=== PATIENT | male | born 1975 | race Caucasian/White ===

== ENCOUNTER 2017-03-26 21:33 | Emergency (ER) ==
[2017-03-26 21:42] VITALS: BP 157/93; TEMP 98; BMI 28.2
[2017-03-26] MEDS ORDERED: DOXYCYCLINE HYCLATE PO STA (22:03)
[2017-03-26] MEDS ORDERED: ULTRAM PO STA (22:04)
--- NOTE | 2017-03-26 22:09 | ED.PDOC ---
General ED Provider: Dr. FOREIGN MCCLELLAND-ER Chief Complaint: Abscess Stated Complaint: sari got this thing in my thigh Time Seen by Physician: 22:04 Mode of Arrival: Walk-In Information Source: Patient Exam Limitations: No limitations Primary Care Provider: FOREIGN MCCLELLAND Nursing and Triage Documentation Reviewed and Agree: Yes Reviewed sepsis parameters & appropriate labs ordered?: Yes System Inflammatory Response Syndrome: Not Applicable Sepsis Protocol: For patient's 13 years and over: Temp is 96.8 and below OR 101 and greater Pulse >90 BPM Resp >20/minute Acutely Altered Mental Status Are patient's symptoms suggestive of a new infection, such as: -Pneumonia -Skin, Soft Tissue -Endocarditis -UTI -Bone, Joint Infection -Implantable Device -Acute Abdominal Infection -Wound Infection -Meningitis -Blood Stream Catheter Infection -Unknown Skin Complaint Exam - Skin/Soft Tissue Complaint/Exam Onset/Duration: several days Symptoms Are: Still present Timing: Constant Initial Severity: Mild Current Severity: Mild Location: left thigh Character: Reports: Redness, Swelling, Raised, Painful Aggravating: Reports: None Alleviating: Reports: None Associated Signs and Symptoms: Reports: Tenderness. Denies: Fever, Chills, Itching, Drainage, Red streaks, Joint swelling Related Surgical History: Reports: None Recent Exposure to Others w/Similar Symptoms: No Skin Findings: Present: Fluctuant mass Joint Tenderness Present: No Differential Diagnoses: Abscess, Cellulitis Review of Systems - Review Of Systems Constitutional: Reports: No symptoms Eyes: Reports: No symptoms Ears, Nose, Mouth, Throat: Reports: No symptoms Respiratory: Reports: No symptoms Cardiac: Reports: No symptoms GI: Reports: No symptoms : Reports: No symptoms Musculoskeletal: Reports: No symptoms Skin: Reports: Lumps, Rash Neurological: Reports: No symptoms Endocrine: Reports: No symptoms Hematologic/Lymphatic: Reports: No symptoms All Other Systems: Reviewed and Negative Past Medical History - Past Medical History Previously Healthy: Yes Endocrine: Reports: Unknown Cardiovascular: Reports: Unknown Respiratory: Reports: Unknown Hematological: Reports: Unknown Gastrointestinal: Reports: Unknown Genitourinary: Reports: Unknown Neuro/Psych: Reports: Unknown Musculoskeletal: Reports: Unknown Cancer: Reports: Unknown - Surgical History General Surgical History: Denies: Unknown - Family History Family History: Reports: Unknown - Social History Smoking Status: Current some day smoker Hx Substance Use: No Alcohol Screening: None - Immunizations Tetanus Shot up to Date: Yes Physical Exam - Physical Exam Appearance: Well-appearing, No pain distress, Well-nourished Pain Distress: Mild Eyes: JAZMINE, EOMI, Conjunctiva clear ENT: Ears normal, Nose normal, Oropharynx normal Neck: Supple Respiratory: Airway patent Cardiovascular: RRR, Pulses normal, No rub, No murmur GI/: Soft, Nontender, No masses, Bowel sounds normal, No Organomegaly Musculoskeletal: Normal strength, ROM intact, No edema, No calf tenderness Skin: Warm Neurological: Sensation intact, Motor intact, Reflexes intact, Cranial nerves intact, Alert, Oriented Psychiatric: Affect appropriate, Mood appropriate Critical Care Note - Critical Care Note Total Time (mins): 0 Course - Course Orders, Labs, Meds: Orders Category Date Time Status Doxycycline Hyclate MEDS 03/26/17 22:03 Stat 100 mg PO NOW STA Tramadol HCl [Ultram] MEDS 03/26/17 22:04 Stat 100 mg PO ONCE STA Medications Discontinued Medications Generic Name Dose Route Start Last Admin Trade Name Freq PRN Reason Stop Dose Admin Doxycycline Hyclate 100 mg 03/26/17 22:03 Doxycycline Hyclate PO 03/26/17 22:04 NOW STA Tramadol HCl 100 mg 03/26/17 22:04 Ultram PO 03/26/17 22:05 ONCE STA i feel Zane needs to be in the hospital with iv antbx and surgical consult but because of his work policy he says he absolutely cannot go into the hospital at this time--he is warned this could get worse and result in injury and even from sepsis but doesnt want to go into the hospital now Vital Signs: Temp Pulse Resp BP Pulse Ox 03/26/17 21:36 98 F 77 16 157/93 H 98 Departure - Departure Time of Disposition: 22:09 Disposition: HOME SELF-CARE Discharge Problem: Abscess Instructions: Abscess (ED) Condition: Good Pt referred to PMD for follow-up: Yes Additional Instructions: doxycycline 100mg bid x 7 days--ultram 50mg 1-2 tabs q 6hrs #20--warm compresses --see me monday 8:15 am for admission--sooner if you change your mind Allergies/Adverse Reactions: Allergies No Known Allergies Allergy (Unverified 03/26/17 21:45) Home Medications: Ambulatory Orders 1 [No Reported Medications] 03/26/17 Disposition Discussed With: Patient
== END 2017-03-26 22:19 | disposition home or self-care (01) ==
LOC: ED 21:33
DX: L02.416 Cutaneous abscess of left lower limb (principal); F17.210 Nicotine dependence, cigarettes, uncomplicated
CPT/HCPCS: 99282

== ENCOUNTER 2018-11-09 08:00 | Outpatient (RCR) ==
--- NOTE | 2018-10-26 09:53 | RS.OTDNOTE ---
Subjective Date of Note: 10/26/18 Visit #: 6 Number of visits approved by Insurance: 8 Date of Evaluation: 10/10/18 Payer Source: Insurance Treatment Diagnosis: Right elbow pain M25.521 *Precautions: At risk for further injury Current Complaints/Gains: Pain continues with certain movements. 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 States he relies more on his (L) UE/hand 2* pain in his dom (R)UE. Pain Assessment - Pain Description Pain Description: Tightness, Radiating, Sharp, Dull, Throbbing, Aching, Acute Pain Location: Right elbow some laterally of the olecranon process. Pt reports pain on the lateral epicondyle area. Pain Description: Aches, sharp, tenderness to touch (R) elbow and anterior shoulder Current Pain Intensity: 4 Worst Pain Intensity: 10 Modalities - Treatment Modality: Ultrasound Parameters/Method Applied: 1.5w/cm2 x 10 mins Treatment Area: elbow Patient Position: Sitting - Hot Pack/Cryotherapy Treatment: Hot Pack, Cryotherapy Comments:: Pt ed to continue with stretching program and applying CP Interventions - Exercise/Activities Exercise/Activities/Manual Therapy: Ultrasound to the right lateral elbow to decrease pain, edema and scar tissue. PROM/scar massage and gentle stretching perfomed of elbow flexion/extension, wrist flexion/extension, and pronation/ supination. Pt ed continued on HEP/stretching, ice pack application, and use of tennis elbow strap for compression therapy. Medium strength hand gripper and 7#/9# digi-flex utilized for hand gripping ex along with HEP/PRE's stretching program. HOME EXERCISE PROGRAM: Pt is doing pain management tasks and edema management at this time. Pt states he has been applying CP x1 daily at night. pt issued an elbow compression strap for wknd use. - Other Treatment/Services Treatment Details: Pain continues and increases with PROM along with tenderness to touch. Pt does not like compression strap and believes it increased c/o pain. Pt encourged to speak with billing dept for MD office to obtain CT scan. - Objective Findings Objective Findings:: elbow flexion/extension increasing each session. - Charges Timed Code Treatment Minutes: 46 Total Treatment Time: 61 Procedures billed for this date of service:: CP US MT EX Assessment Patient Education: Education of diagnosis, Body/Joint mechanics, Home Exercise Program, Home Safety, Activity Modification, Education of Plan of Care Patient demonstrates compliance with HEP?: Yes Short Term Goals Goal #1: Pt to increase extension of RUE elbow to 0-10 deg. Goal to be met by: 10/24/18 Progress towards goal: Met Goal #2: Pt to increase flexion of RUE elbow 0-115 deg. Goal to be met by: 10/24/18 (PROM) Progress towards goal: Met Goal #3: Pt's pain decreased to 2-4/10. Goal to be met by: 10/24/18 Progress towards goal: Regressing Goal #4: Pt to increase his mass translator/interpreter to 103#. Goal to be met by: 10/24/18 (80# 64# 86#) Progress towards goal: Not Met Inseminator Goals Goal #1: Pt to increase extension of RUE elbow to 0-5 deg. Goal to be met by: 11/09/18 Progress towards goal: Progressing Goal #2: Pt to increase flexion of RUE elbow 0-130 deg. Goal to be met by: 11/09/18 Progress towards goal: Progressing Goal #3: Pt's pain decreased to 0-2/10. Goal to be met by: 11/09/18 Progress towards goal: Progressing Goal #4: Pt to increase his mass translator/interpreter to 109#. Goal to be met by: 11/09/18 Progress towards goal: Progressing Plan Dates of Nursing Home Goals: 11/09/18 Expiration date of current Insurance Approval:: 11/09/18 PLAN: Cont tx to max functional UE AROM/strength with decreased c/o pain
--- NOTE | 2018-10-31 09:49 | RS.OTDNOTE ---
Subjective Date of Note: 10/31/18 Visit #: 7 Number of visits approved by Insurance: 12 Date of Evaluation: 10/10/18 Payer Source: Insurance Treatment Diagnosis: Right elbow pain M25.521 *Precautions: At risk for further injury Current Complaints/Gains: Pt agrees his motion is getting better. States without activity that his pain is 0-2/10 but increases to 8-9/10 at times. States c/o a "catch or twisting". States he is still dropping things and feels weak in his (R)UE. Pain Assessment - Pain Description Pain Description: Tightness, Radiating, Sharp, Dull, Throbbing, Aching, Acute Pain Location: Right elbow some laterally of the olecranon process. Pt reports pain on the lateral epicondyle area. Pain Description: Aches, sharp, tenderness to touch (R) elbow and anterior shoulder Current Pain Intensity: 2 Worst Pain Intensity: 8-9 Modalities - Treatment Modality: Ultrasound Parameters/Method Applied: .04-1.5w/cm2 x 12+ mins Patient Position: Sitting - Hot Pack/Cryotherapy Treatment: Cryotherapy Comments:: CP X10 mins Interventions - Exercise/Activities Exercise/Activities/Manual Therapy: Ultrasound to the right lateral elbow to decrease pain, edema and scar tissue. PROM/scar massage and gentle stretching perfomed of elbow flexion/extension, wrist flexion/extension, and pronation/ supination. Pt ed continued on HEP/stretching, ice pack application, and use of tennis elbow strap for compression therapy. Medium strength hand gripper and 7#/9# digi-flex utilized for hand gripping ex along with HEP/PRE's stretching program and use of blue t-putty. HOME EXERCISE PROGRAM: Pt is doing pain management tasks and edema management at this time. Pt states he has been applying CP x1 daily at night. Pt encouraged to robbin ice pack more times during the day and ed on sleeping positions at night with (R)UE in extension. - Objective Findings Objective Findings:: elbow flexion/extension and pro/supination WFL. Pain increase with elbow flexion and supination positons. - Charges Timed Code Treatment Minutes: 48 Total Treatment Time: 59 Procedures billed for this date of service:: CP US MT EX Assessment Patient Education: Education of diagnosis, Body/Joint mechanics, Home Exercise Program, Home Safety, Activity Modification, Education of Plan of Care Patient demonstrates compliance with HEP?: Yes Short Term Goals Goal #1: Pt to increase extension of RUE elbow to 0-10 deg. Goal to be met by: 10/24/18 Progress towards goal: Met Goal #2: Pt to increase flexion of RUE elbow 0-115 deg. Goal to be met by: 10/24/18 (PROM) Progress towards goal: Met Goal #3: Pt's pain decreased to 2-4/10. Goal to be met by: 10/24/18 Progress towards goal: Progressing Comments: 2/10 without activity Goal #4: Pt to increase his mass tank driver to 103#. Goal to be met by: 10/24/18 (78# 64# 74#) Progress towards goal: Progressing Senior Living Goals Goal #1: Pt to increase extension of RUE elbow to 0-5 deg. Goal to be met by: 11/09/18 Progress towards goal: Progressing Goal #2: Pt to increase flexion of RUE elbow 0-130 deg. Goal to be met by: 11/09/18 Progress towards goal: Progressing Goal #3: Pt's pain decreased to 0-2/10. Goal to be met by: 11/09/18 Progress towards goal: Progressing Goal #4: Pt to increase his mass tank driver to 109#. Goal to be met by: 11/09/18 Progress towards goal: Progressing Plan Dates of Senior Living Goals: 11/09/18 Expiration date of current Insurance Approval:: 11/09/18 PLAN: Continue per POC to max functional UE AROM/strength with decreased c/o pain in all positions.
--- NOTE | 2018-11-02 10:22 | RS.OTDNOTE ---
Subjective Date of Note: 11/02/18 Visit #: 8 Number of visits approved by Insurance: 12 Date of Evaluation: 10/10/18 Payer Source: Insurance Treatment Diagnosis: Right elbow pain M25.521 *Precautions: At risk for further injury Current Complaints/Gains: Pt continues with c/o pain with different movements. States he has vice commercial credit lead at home and will utilize for hand strengthening ex's. States mowing and weed eating increases pain and he has trouble with starting both machines with the pull cord. Pain Assessment - Pain Description Pain Description: Tightness, Radiating, Sharp, Dull, Throbbing, Aching, Acute Pain Location: Right elbow some laterally of the olecranon process. Pt reports pain on the lateral epicondyle area. Pain Description: Aches, sharp, tenderness to touch (R) elbow and anterior shoulder Current Pain Intensity: 2-3 Worst Pain Intensity: 8 Modalities - Treatment Parameters/Method Applied: .04-1.0w/cm2 x 12 mins total Patient Position: Sitting - Hot Pack/Cryotherapy Treatment: Cryotherapy (following tx) Interventions - Exercise/Activities Exercise/Activities/Manual Therapy: Ultrasound to the right lateral elbow to decrease pain, edema and scar tissue. PROM/scar massage and gentle stretching perfomed of elbow flexion/extension, wrist flexion/extension, and pronation/ supination. Pt ed continued on HEP/stretching, ice pack application, and use of tennis elbow strap for compression therapy. Medium strength hand gripper, large vice kraft digester operator and 7#/9# digi-flex utilized for hand gripping ex along with HEP /PRE's stretching program and use of blue t-putty. Graston tool utilized for tissue mobilization tech's. HOME EXERCISE PROGRAM: Pt is doing pain management tasks and edema management at this time. Pt states he has been applying CP x1 daily at night. Pt encouraged to robbin ice pack more times during the day and ed on sleeping positions at night with (R)UE in extension. - Objective Findings Objective Findings:: elbow flexion/extension and pro/supination WFL. Pain increase with elbow flexion and supination positons. - Charges Timed Code Treatment Minutes: 51 Total Treatment Time: 60 Procedures billed for this date of service:: CP US EX MT Assessment Patient Education: Education of diagnosis, Body/Joint mechanics, Home Exercise Program, Home Safety, Activity Modification, Education of Plan of Care Patient demonstrates compliance with HEP?: Yes Short Term Goals Goal #1: Pt to increase extension of RUE elbow to 0-10 deg. Goal to be met by: 10/24/18 Progress towards goal: Met Goal #2: Pt to increase flexion of RUE elbow 0-115 deg. Goal to be met by: 10/24/18 (PROM) Progress towards goal: Met Goal #3: Pt's pain decreased to 2-4/10. Goal to be met by: 10/24/18 Progress towards goal: Progressing Goal #4: Pt to increase his mass kraft digester operator to 103#. Goal to be met by: 10/24/18 (80# 67# 72#) Progress towards goal: Progressing Comments: 80# achieved following vice kraft digester operator ex's [place] Goals Goal #1: Pt to increase extension of RUE elbow to 0-5 deg. Goal to be met by: 11/09/18 (following PROM) Progress towards goal: Partially Met Goal #2: Pt to increase flexion of RUE elbow 0-130 deg. Goal to be met by: 11/09/18 (following PROM) Progress towards goal: Partially Met Goal #3: Pt's pain decreased to 0-2/10. Goal to be met by: 11/09/18 Progress towards goal: Progressing Goal #4: Pt to increase his mass kraft digester operator to 109#. Goal to be met by: 11/09/18 Progress towards goal: Progressing Plan Dates of [place] Goals: 11/09/18 Expiration date of current Insurance Approval:: 11/09/18 PLAN: Continue tx to max UE AROM/strength with decreased c/o pain.
--- NOTE | 2018-11-05 09:30 | RS.OTDNOTE ---
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 Pt is not able to complete his job 100% at the [employer]. 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 Pain Assessment - Pain Description Pain Description: Tightness, Radiating, Sharp, Dull, Throbbing, Aching, Acute Pain Location: Right elbow some laterally of the olecranon process. Pt reports pain on the lateral epicondyle area. Pain Description: Aches, sharp, tenderness to touch (R) elbow and anterior shoulder Current Pain Intensity: 7 Worst Pain Intensity: 10 Other comments regarding pain:: Pt reports that when he completes the dealing motion his pain is higher than the 10/10. Pt reports that his elbow will lock intermittently and he has to stop and try to move his elbow in a way to get it loose. Modalities - Treatment Modality: Ultrasound Parameters/Method Applied: .4 w/cm2 to decrease pain, edema, and reallign muscle fibers for healing Treatment Area: Right elbow lateral to the olecranon process. Patient Position: Sitting - Hot Pack/Cryotherapy Treatment: Cryotherapy Interventions - Exercise/Activities Exercise/Activities/Manual Therapy: Ultrasound to the right lateral elbow to decrease pain, edema and scar tissue. PROM/scar massage and gentle stretching perfomed of elbow flexion/extension, wrist flexion/extension, and pronation/ supination. Pt ed continued on HEP/stretching, ice pack application, and use of tennis elbow strap for compression therapy intermittently. Medium strength hand gripper, large vice wet wheeler and 7#/9# digi-flex utilized for hand gripping ex along with HEP/PRE's stretching program and use of blue t-putty. Manual therapy to tender point areas to decrease pain. HOME EXERCISE PROGRAM: Pt is doing pain management tasks and edema management at this time. Pt states he has been applying CP x1 daily at night. Pt encouraged to robbin ice pack more times during the day and ed on sleeping positions at night with (R)UE in extension. - Objective Findings Objective Findings:: elbow flexion/extension and pro/supination WFL. Pain increase with elbow flexion and supination positions. - Charges Timed Code Treatment Minutes: 62 Total Treatment Time: 50 Procedures billed for this date of service:: US, MT, EX, CP Assessment Assessment: Pt has had an increase in AROM and continues to have to rotate his Right hand and elbow laterally to allow for more elbow flexion. The catch is intermittently. Pt has mass wet wheeler of avg. 71# today. Pt has pain with flexion of the small digit with 9# gripper. Patient Education: Education of diagnosis, Body/Joint mechanics, Home Exercise Program, Education of Plan of Care Problems/Comments: Pain shooting up to 01/03. Intermittent catching and locking of the elbow with AROM. Patient demonstrates compliance with HEP?: Yes Short Term Goals Goal #1: Pt to increase extension of RUE elbow to 0-10 deg. Goal to be met by: 10/24/18 Progress towards goal: Met Goal #2: Pt to increase flexion of RUE elbow 0-115 deg. Goal to be met by: 10/24/18 (PROM) Progress towards goal: Met Goal #3: Pt's pain decreased to 2-4/10. Goal to be met by: 10/24/18 Progress towards goal: Progressing Goal #4: Pt to increase his mass wet wheeler to 103#. Goal to be met by: 10/24/18 (80# 67# 72#) Progress towards goal: Progressing [place] Goals Goal #1: Pt to increase extension of RUE elbow to 0-5 deg. Goal to be met by: 11/09/18 (following PROM) Progress towards goal: Partially Met Goal #2: Pt to increase flexion of RUE elbow 0-130 deg. Goal to be met by: 11/09/18 (following PROM) Progress towards goal: Partially Met Goal #3: Pt's pain decreased to 0-2/10. Goal to be met by: 11/09/18 Progress towards goal: Progressing Goal #4: Pt to increase his mass wet wheeler to 109#. Goal to be met by: 11/09/18 Progress towards goal: Progressing Plan Dates of [facility] Goals: 11/09/18 Expiration date of current Insurance Approval:: 11/09/18 PLAN: Pt to return to physician after the to address the continued locking of the elbow with elbow AROM, and the weakness of the RUE where he cannot hang on to things without dropping them.
--- NOTE | 2018-11-09 15:04 | RS.OTDCSUM ---
Subjective Date of Discharge: 11/09/18 Date of Evaluation: 10/10/18 Number of Visits: 10 Treatment Diagnosis: M25.521 Right elbow pain Current Level of Function: Pt is having difficulty with completing his job. 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 Current Complaints/Gains: Pt has 8/10 pain in the right elbow with supination and extension. Pt has increased his AROM of elbow flexion, and patient's elbow edema has decreased. Pain Assessment - Pain Description Pain Description: Tightness, Radiating, Sharp, Throbbing, Aching, Acute Pain Location: Right elbow some laterally of the olecranon process. Pt reports pain on the lateral epicondyle area. Pain Description: Aches, sharp, tenderness to touch (R) elbow and anterior shoulder Current Pain Intensity: 0 Worst Pain Intensity: 8 Other comments regarding pain:: Pt has pain when actively using his RUE and completing pronation to supination in elbow extension. Pt is 0/10 pain at rest. When moving, patient is 8/10. Functional Outcome Measures UE Functional Index: 65 - G Codes & Severity Modifier G Codes: . Source of G Code score: . Observation - Observation Handedness: Right Shoulder ROM: Bilaterally WFL's Shoulder Muscle Strength: Left WFL's Elbow ROM: Left WFL's Elbow Muscle Strength: Left WFL's - Left Elbow Strength Left Elbow Extension: 4+ Good + Left Elbow Flexion: 4+ Good + Left Forearm Pronation: 4+ Good + Left Forearm Supination: 4+ Good + - Right Elbow Strength Right Elbow Extension: 3- Fair- Right Elbow Flexion: 3+ Fair+ Right Forearm Pronation: 3 Fair Right Forearm Supination: 2+ Poor+ Wrist ROM: Left WFL's Wrist Muscle Strength: Left WFL's - Right Wrist/Hand ROM Right Wrist Extension: 55 Right Wrist Flexion: 50 Right Wrist Radial Deviation: 20 Right Wrist Ulnar Deviation: 15 Right Forearm Pronation: 75 Right Forearm Supination: 65 Right Wrist ROM Testing Limitations: Muscle Weakness, Pain - Right Wrist Strength Right Wrist Extension: 3- Fair- Right Wrist Flexion: 3- Fair- Right Wrist Radial Deviation: 3- Fair- Right Wrist Ulnar Deviation: 3- Fair- Right Forearm Pronation: 3- Fair- Right Forearm Supination: 3- Fair- (Pt tested with RUE mass snack foods mixer operator of 98# and has lost to 71#) - Nightclub Manager Strength Left Nightclub Manager Strength: 110 Right Nightclub Manager Strength: 71 (Pt is losing strength in RUE snack foods mixer operator.) Palpation Palpation Findings: Muscle Guarding Comments:: Pt reports pain over the lateral epicondylitis area and the olecranon process near the lateral collateral ligament. Sensation Right Upper Extremity: Impaired (Pt reports a sharp pain in the elbow.) Left Upper Extremity: Intact/Normal Comments: Pt reports a numbness/tingling sensation of the right hand usually when he wakes up in the morning. Pt says at times he drops items like cups that are in his hand. Modalities - Treatment Modality: Ultrasound Parameters/Method Applied: .4 w/cm2 for 10 minutes to decrease edema and pain in the right elbow. Treatment Area: Right elbow. Patient Position: Sitting Comments:: Pt 's AROM has improved. Pain continues to be a hindrance. - Hot Pack/Cryotherapy Treatment: Hot Pack, Cryotherapy Interventions - Exercise/Activities Exercise/Activities/Manual Therapy: Ultrasound to the right lateral elbow to decrease pain, edema and scar tissue. PROM/scar massage and gentle stretching perfomed of elbow flexion/extension, wrist flexion/extension, and pronation/ supination. Pt ed continued on HEP/stretching, ice pack application, and use of tennis elbow strap for compression therapy intermittently. Medium strength hand gripper, large vice snack foods mixer operator and 7#/9# digi-flex utilized for hand gripping ex along with HEP/PRE's stretching program and use of blue t-putty. Manual therapy to tender point areas to decrease pain. Cross friction massage to Lateral epicondylitis. HOME EXERCISE PROGRAM: Pt is doing pain management tasks and edema management at this time. Pt states he has been applying CP x1 daily at night. Pt encouraged to robbin ice pack more times during the day and ed on sleeping positions at night with (R)UE in extension. - Objective Findings Objective Findings:: elbow flexion/extension and pro/supination WFL. Pain increase with elbow flexion and supination positions. - Charges Timed Code Treatment Minutes: 45 Total Treatment Time: 62 Procedures billed for this date of service:: HP, US, MT, EX, CP Assessment Assessment: Pt continues with sharp pain of 8/10 in the right elbow. Pt feels at times his elbow catches and it hurts so bad he goes to his knees. Rehab Potential: Good Short Term Goals Goal #1: Pt to increase extension of RUE elbow to 0-10 deg. Goal to be met by: 10/24/18 Progress towards goal: Met Goal #2: Pt to increase flexion of RUE elbow 0-115 deg. Goal to be met by: 10/24/18 (PROM) Progress towards goal: Met Goal #3: Pt's pain decreased to 2-4/10. Goal to be met by: 10/24/18 Progress towards goal: Progressing Goal #4: Pt to increase his mass snack foods mixer operator to 103#. Goal to be met by: 10/24/18 (80# 67# 72#) Progress towards goal: Progressing Loss Control Manager Goals Goal #1: Pt to increase extension of RUE elbow to 0-5 deg. Goal to be met by: 11/09/18 (following PROM) Progress towards goal: Met Goal #2: Pt to increase flexion of RUE elbow 0-130 deg. Goal to be met by: 11/09/18 (following PROM) Progress towards goal: Partially Met Goal #3: Pt's pain decreased to 0-2/10. Goal to be met by: 11/09/18 Progress towards goal: Not Met Goal #4: Pt to increase his mass snack foods mixer operator to 109#. Goal to be met by: 11/09/18 Progress towards goal: Not Met Plan Reason for Discharge:: Lack of Progress Comments: Pt to be discharged due to his snack foods mixer operator strength decreasing from 98 to 71 and orders have ended. Pt has increased weakness and limited functional use of RUE in supination to pronation.
== END 2018-11-24 23:59 ==
PROVIDERS: ATTEND Orthopaedic Surgery
DX: M25.521 Pain in right elbow (principal)